=== PATIENT | female | born 1985 | race Two or more races ===

== ENCOUNTER 2018-09-05 16:08 | Emergency (ER) | payer MEDICAID, OTHER ==
[~2018-09-05] VITALS: Ht 167.6 cm; Wt 83.9 kg
[2018-09-05 17:00] LABS: Urine WBC None Seen /hpf (0 - 5)
[2018-09-05 17:01] LABS: Alanine Aminotransferase 17 U/L (13-56); Anion Gap 8 (5-15); Aspartate Aminotransferase 12 U/L (15-37); BUN/Creatinine Ratio 11.1; Blood Urea Nitrogen 8 mg/dL (7-18); Calcium 8.4 mg/dL (8.5-10.1); Carbon Dioxide 25 mmol/L (21-32); Chloride 105 mmol/L (98-107); GFR African American > 60 mL/min; GFR Non-African American > 60 mL/min; Glucose 89 mg/dL (74-106); Potassium 3.8 mmol/L (3.5-5.1); Sodium 138 mmol/L (136-145)
[2018-09-05 17:04] LABS: Alkaline Phosphatase 78 U/L (45-117); Bilirubin, Total 0.6 mg/dL (0.2-1.0); Total Protein 8.1 g/dL (6.4-8.2)
[2018-09-05 17:11] LABS: Basophils # (auto) 0 uL; Basophils % (auto) 0.2 % (0.0-2.0); Eosinophils # (auto) 0 uL; Eosinophils % (auto) 0.3 % (0.0-7.0); Hematocrit 43.3 % (36.0-46.0); Hemoglobin 14.8 g/dL (12.2-16.2); Lymphocytes % (auto) 9.4 % (10.0-50.0); Mean Corpuscular Hemoglobin 30.8 pg (28.0-32.0); Mean Corpuscular Hgb Conc. 34.1 g/dL (32.0-36.0); Mean Corpuscular Volume 90.4 fL (80.0-100.0); Monocytes # (auto) 0.7 uL; Monocytes % (auto) 6.6 % (0.0-12.0); Neutrophils # (auto) 8.5 uL; Neutrophils % (auto) 83.5 % (37.0-80.0); Nucleated Red Blood Cells % 0.1 %; Platelet Count (auto) 219 10^3/uL (140-450); Red Blood Cells 4.79 10^6/uL (4.0-5.20); Red Cell Distribution Width 13.1 % (11.8-14.3); White Blood Cell 10.2 10^3/uL (4.4-10.8)
[2018-09-05 17:13] LABS: Urine Bacteria NONE SEEN /hpf (None Seen); Urine Blood Negative /uL (Negative)
[2018-09-05] MEDS ORDERED: KETOROLAC TROMETH 60MG/2ML VIAL IM ONE (17:30)
[2018-09-05 17:33] VITALS: BP 137/94
== END 2018-09-05 19:17 | disposition home or self-care (01) ==
LOC: ER 16:11
DX: B34.9 Viral infection, unspecified (principal); M54.5 Low back pain; R10.2 Pelvic and perineal pain
CPT/HCPCS: 36415; 80053; 81001; 81025; 85025; 96372; 99283; J1885; J7030